=== PATIENT | male | born 1960 | race Caucasian/White ===

== ENCOUNTER → 2024-09-09 | Outpatient (CLI) | payer MEDICARE ==
[~2024-09-09] MED LIST: ATOR80 PO; INSDET100; LISI5 PO; METF500 PO
== END | disposition home or self-care (01) ==
LOC: LAB SHORT 15:55 → LAB 15:55
DX: L02.416 Cutaneous abscess of left lower limb (principal)
CPT/HCPCS: 87070; 87075; 87077; 87147; 87186; 87205